=== PATIENT | male | born 1995 | race Caucasian/White ===

== ENCOUNTER 2021-06-06 22:34 | Emergency (ER) | payer MEDICAID ==
[~2021-06-06] VITALS: Ht 177.8 cm; Wt 72.6 kg
--- NOTE | 2021-06-06 22:34 | NUR ---
Wojciech ASCENCIO via gurney to bed 09.
--- NOTE | 2021-06-06 22:35 | NUR ---
BIBA TO BED 9 FROM [facility] WITH C/O SZ LASTING 30 SECS. PT WITH H/O SZ, AND CP. PT IS RETURNED TO BASELINE UPON ARRIVAL. ATTACHED TO CM = SR WITHOUT ECTOPY. SKIN IS WARM AND DRY. SZ PRECAUTIONS IN PLACE PMH : ROSEMARIE, YANIQUE NKDA
[2021-06-06] MEDS ORDERED: levETIRAcetam 500 MG TAB PO ONE (22:40)
[2021-06-06 22:41] VITALS: BP 116/60
[2021-06-06] MEDS ORDERED: LORazepam 0.5 MG TAB PO ONE (22:45)
[2021-06-07 00:12] VITALS: BP 120/75
--- NOTE | 2021-06-07 00:13 | NUR ---
Patient discharged with v/s stable. Written and verbal after care instructions given and explained. Patient verbalized understanding. Ambulatory with steady gait. All questions addressed prior to discharge. Advised to follow up with PMD.
== END 2021-06-07 00:13 | disposition home or self-care (01) ==
LOC: MED 22:34
DX: G40.909 Epilepsy, unspecified, not intractable, without status epilepticus (principal)
CPT/HCPCS: 71045; 93005; 99283; Q0092

== ENCOUNTER 2023-02-17 23:50 | Emergency (ER) | payer MEDICAID ==
[~2023-02-17] VITALS: Ht 170.2 cm; Wt 81.6 kg
--- NOTE | 2023-02-17 23:50 | NUR ---
PT [facility] ER BED 1
[2023-02-17 23:57] VITALS: BP 139/81
--- NOTE | 2023-02-18 00:07 | NUR ---
Patient resting in bed, A/Ox4, chest rise and fall symmetrical, no c/o pain or s/s of distress, on monitor, seizure precautions/pads in place.
--- NOTE | 2023-02-18 00:20 | NUR ---
Patient resting in bed, A/Ox4, chest rise and fall symmetrical, no c/o pain or s/s of distress, on monitor, seizure pads in place, mother at bedside. Addendum: 02/18/23 at 0039 by [email or web address] Patient resting in bed, alert and awake, chest rise and fall symmetrical, no c/o pain or s/s of distress, on monitor, seizure pads in place, mother at bedside.
[2023-02-18] MEDS ORDERED: KEP500L PO (00:37)
[2023-02-18] MEDS ORDERED: OXCA300T PO (00:37)
[2023-02-18] MEDS ORDERED: LORazepam 1 MG TAB PO ONE (01:25)
[2023-02-18] MEDS ORDERED: CRUSHER, PILL MC ONE (01:33)
[2023-02-18 01:47] LABS: ANION GAP 7.5 (8-16); CREATININE 0.6 mg/dL (0.6-1.3); POTASSIUM 5.5 mmol/L (3.5-5.1)
[2023-02-18] MEDS ORDERED: SODIUM ZIRCONIUM CYCLOSILICATE 10 GM POWD.PACK PO ONE (02:05)
--- NOTE | 2023-02-18 02:27 | NUR ---
Patient resting in bed, alert and awake, chest rise and fall symmetrical, no c/o pain or s/s of distress, on monitor, seizure pads in place, mother at bedside.
[2023-02-18] MEDS ORDERED: NACL 0.9% 1,000 ML IV ONE (02:35)
[2023-02-18 02:49] LABS: APPEARANCE,URINE CLEAR (CLEAR); BILIRUBIN,URINE NEGATIVE (NEGATIVE); BLOOD, URINE NEGATIVE (NEGATIVE); COLOR,URINE YELLOW (YELLOW); LEUKOCYTE ESTERASE ,URINE NEGATIVE (NEGATIVE); NITRITE, URINE NEGATIVE (NEGATIVE); UGLUCOSE NEGATIVE (NEGATIVE)
[2023-02-18 03:00] LABS: BARBITURATE, URINE NEGATIVE ng/ml (NEG <=200); BENZODIAZEPINE, URINE NEGATIVE ng/mL (NEG <=200); CANNABINOID, URINE NEGATIVE ng/mL (NEG <=50); COCAINE, URINE NEGATIVE ng/mL (NEG <=300); OPIATE, URINE NEGATIVE ng/mL (NEG <=2000); PHENCYCLIDINE SCREEN,URINE NEGATIVE ng/mL (NEG <=25)
--- NOTE | 2023-02-18 03:05 | NUR ---
Dr. Sage speaking with patient's mother.
[2023-02-18 03:10] VITALS: BP 122/75
--- NOTE | 2023-02-18 03:10 | NUR ---
Patient left safely with patient's mother, in patient's mother's car, seatbelt on, all patient's belongings sent with patient's mother.
== END 2023-02-18 03:10 | disposition home or self-care (01) ==
LOC: MED 23:50
DX: R56.9 Unspecified convulsions (principal); E87.5 Hyperkalemia; Z79.899 Other long term (current) drug therapy
CPT/HCPCS: 36415; 80048; 80305; 81003; 96360; 99285; J7030